=== PATIENT | female | born 1960 | race Caucasian/White ===

== ENCOUNTER → 2016-12-20 | Day surgery (SDC) | payer OTHER ==
[~2016-12-20] MED LIST: AMARYL2 MG; AVAPRO150 MG PO; LEVEMIR100 UNITS/ SUBQ; LEVOTHYROXINE150 MCG PO; METFORMIN PO; NORVASC10 MG PO; PRAVASTATIN SOD20 MG PO
--- NOTE | ~2016-12-20 | OR ---
Unit #: [id number] #: [id number] Patient: JAVAD SEGURA [id number] [address] [address] [id number] O MR#: [id number] NAME: JAVAD SEGURA. ROOM: Date of Procedure: 12/20/2016 Admission Date: 12/20/2016 Surgeon: Sergey Song M.D. : 1960 Attending Physician: Sergey Song M.D. Primary Care Physician: Stephane Otero M.D. OPERATIVE REPORT PRIMARY CARE PHYSICIAN Stephane Otero M.D. PREOPERATIVE DIAGNOSIS Colorectal cancer screening in an average-risk patient. PROCEDURES PERFORMED Colonoscopy and polypectomy. POSTOPERATIVE DIAGNOSES 1. The patient had 2 sessile polyps, one each in the proximal ascending and proximal transverse colon. These were 4 to 6 mm each. Both the polyps were removed using snare polypectomy, retrieved and sent for histology. 2. Mild sigmoid and descending colon diverticulosis. 3. Rest of examination up to cecum was normal. The quality of prep was excellent. RECOMMENDATIONS Follow up results of polyp histology and repeat colonoscopy in 5 years. SEDATION USED MAC. DESCRIPTION OF PROCEDURE Following detailed explanation of potential risks and complications of a colonoscopy, namely perforation, bleeding, and complications related to sedation, the patient was brought to GI lab and laid in the left lateral decubitus position. A digital rectal examination was performed, which was normal. Lubricated tip of the Olympus video colonoscope was inserted through the anus and advanced under direct vision. The scope was advanced and passed up to sigmoid into descending colon. Scant small diverticula were seen in this area. The scope tip was then navigated all the way up to cecum with visualization of the ileocecal valve and the appendiceal orifice. Preparation was excellent with good visualization and photodocumentation was obtained. Successive segments of the colonic mucosa were examined upon withdrawal. Two sessile polyps were noted, one each in the proximal ascending and proximal transverse colon. These were 4 to 6 mm each, both were removed using snare polypectomy, retrieved and sent for histology. Excellent hemostasis was achieved and photodocumentation was obtained. No additional polyps were noted. Other than the scant diverticula on the left side, no other abnormalities were Unit #: [id number] #: [id number] Patient: JAVAD SEGURA found. The patient did not have any internal hemorrhoids at anal verge. The scope was then withdrawn. The patient returned to the recovery area. She tolerated the procedure without any postprocedure complications. Dictated by.Mikayla Jerome/topher TD: 12/20/2016 22:37 JOB #: [id number] OPERATIVE REPORT X Sergey Song MD X PROCEDURE OPERATIVE NOTE
== END | disposition home or self-care (01) ==
LOC: COPS 07:34
DX: Z12.11 Encounter for screening for malignant neoplasm of colon (principal); D12.2 Benign neoplasm of ascending colon; D12.3 Benign neoplasm of transverse colon; K57.30 Diverticulosis of large intestine without perforation or abscess without bleeding; I10 Essential (primary) hypertension; E11.9 Type 2 diabetes mellitus without complications; E78.5 Hyperlipidemia, unspecified; E03.9 Hypothyroidism, unspecified; Z87.01 Personal history of pneumonia (recurrent); Z79.899 Other long term (current) drug therapy; Z98.890 Other specified postprocedural states
CPT/HCPCS: 82947; 88305

== ENCOUNTER 2017-03-20 12:22 | Emergency (ER) | payer OTHER ==
--- NOTE | ~2017-03-20 | CR106 ---
[facility] A Service of [facility] RADIOLOGY TEXT RESULTS PATIENT: JAVAD SEGURA LOCATION: [facility] : 58 UNIT #: [id number] AGE: [address]: Hilda Alejandro SEX: F ORDER DR: [id number] [facility] [address] [place], [place] [address] [id number] E MR#: [id number] Acc #: [id number] NAME: JAVAD SEGURA. : 1960 SEX: F STUDY DATE/TIME: 03/20/2017 15:38 UNIT: [facility] ROOM: STUDY DESCRIPTION: CR Femur 2 Views Lt Attending Physician: Hilda Alejandro P.A.-C. Ordering Physician: Hilda Alejandro P.A.-C. Primary Care Physician: Stephane Otero M.D. MEDICAL IMAGING REPORT This report is preliminary unless electronic signature is present EXAM Left femur, 2 views COMPARISON 3 views of the left knee on the same date. INDICATION 56-year-old female with left thigh pain, swelling and bruising after falling last night. FINDINGS Patellofemoral osteoarthritis is again noted with mild enthesopathy at the superior pole of the patella. Bones are anatomically aligned. Mild marginal osteophytes of the medial compartment of the knee. Mild osteophyte formation at the hip. No evidence of acute fracture. IMPRESSION 1. No evidence of acute fracture or dislocation of the left femur. 2. 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 Dictated by... Tera Donahue M.D. THIS IS AN ELECTRONICALLY VERIFIED REPORT Tera Donahue M.D. at 03/28/2017 7:51 AM Shawn TD: 03/20/2017 23:04 JOB #: [id number] [facility] A Service of [facility] RADIOLOGY TEXT RESULTS PATIENT: JAVAD SEGURA LOCATION: [facility] #: [id number] : 58 UNIT #: [id number] AGE: [address]: Hilda Alejandro SEX: F ORDER DR: MEDICAL IMAGING REPORT Page 1 of 1 COPY
--- NOTE | ~2017-03-20 | CR172 ---
[facility] A Service of [facility] RADIOLOGY TEXT RESULTS PATIENT: JAVAD SEGURA LOCATION: [facility] : 58 UNIT #: [id number] AGE: [address]: Hilda Alejandro SEX: F ORDER DR: [id number] [facility] [address] [place], [place] [address] [id number] E MR#: [id number] Acc #: [id number] NAME: JAVAD SEGURA. : 1960 SEX: F STUDY DATE/TIME: 03/20/2017 15:36 UNIT: [facility] ROOM: STUDY DESCRIPTION: CR Knee 3 Views Lt Attending Physician: Hilda Alejandro P.A.-C. Ordering Physician: Hilda Alejandro P.A.-C. Primary Care Physician: Stephane Otero M.D. MEDICAL IMAGING REPORT This report is preliminary unless electronic signature is present EXAM Left knee, 3 views COMPARISON 2 views of the left femur on the same date. INDICATION 56-year-old female with left knee pain, swelling and bruising after falling last night. FINDINGS There are tibial spine osteophytes as well as femoral notch osteophytes and there is a marginal osteophyte, which is small at the medial tibial plateau. There is bulky osteophyte formation of the superior patella with a small inferior patellar osteophyte. There are also superior femoral osteophytes and mild enthesopathy at the superior pole of the patella. There is questionable thickening of the quadriceps insertion at the patella. There is apparent joint space narrowing of the patellofemoral articulation. No evidence of acute fracture. Bones are anatomically aligned. IMPRESSION 1. No acute fracture or dislocation. 2. Moderate to severe patellofemoral osteoarthritis with mild osteoarthritis of the medial compartment of the knee. There are also femoral notch and tibial spine osteophytes. 3. Findings suggesting enthesopathy at the quadriceps insertion of the patella. Dictated by... Tera Donahue M.D. [facility] A Service of [facility] RADIOLOGY TEXT RESULTS PATIENT: JAVAD SEGURA [id number] : [birth year] UNIT #: [id number] AGE: [address]: Hilda Alejandro SEX: F ORDER DR: THIS IS AN ELECTRONICALLY VERIFIED REPORT Tera Donahue M.D. at 03/28/2017 7:50 AM Shawn TD: 03/20/2017 23:01 JOB #: [id number] MEDICAL IMAGING REPORT Page 1 of 1 COPY
--- NOTE | ~2017-03-20 | CR93 ---
[facility] A Service of [facility] RADIOLOGY TEXT RESULTS PATIENT: JAVAD SEGURA LOCATION: [facility] : 58 UNIT #: [id number] AGE: [address]: Hilda Alejandro SEX: F ORDER DR: [id number] [facility] [address] [place], [place] [address] [id number] E MR#: [id number] Acc #: [id number] NAME: JAVAD SEGURA : 1960 SEX: F STUDY DATE/TIME: 03/20/2017 15:45 UNIT: [facility] ROOM: STUDY DESCRIPTION: CR Elbow Min 3 Views Lt Attending Physician: Hilda Alejandro P.A.-C. Ordering Physician: Hilda Alejandro P.A.-C. Primary Care Physician: Stephane Otero M.D. MEDICAL IMAGING REPORT This report is preliminary unless electronic signature is present EXAM Left elbow, 03/20/2017 INDICATION Pain, swelling and bruising after a fall last night. FINDINGS AP and lateral examination of the elbow shows satisfactory articulation of the humerus with the proximal radius and ulna. There is no identifiable fracture, dislocation, joint effusion, or radiopaque foreign body in the soft tissues. IMPRESSION Normal elbow. Dictated by... Pratik Mahajan Jr., M.D. THIS IS AN ELECTRONICALLY VERIFIED REPORT Pratik Mahajan Jr., M.D. at 03/21/2017 8:45 PM SHELBIE/piotr TD: 03/20/2017 22:58 JOB #: [id number] MEDICAL IMAGING REPORT Page 1 of 1 COPY
== END 2017-03-20 16:35 | disposition home or self-care (01) ==
LOC: CED 12:22
DX: S50.12XA Contusion of left forearm, initial encounter (principal); S70.02XA Contusion of left hip, initial encounter; S80.02XA Contusion of left knee, initial encounter; Y92.9 Unspecified place or not applicable; I10 Essential (primary) hypertension; E11.9 Type 2 diabetes mellitus without complications; Z79.4 Long term (current) use of insulin; E03.9 Hypothyroidism, unspecified; W01.0XXA Fall on same level from slipping, tripping and stumbling without subsequent striking against object, initial encounter
CPT/HCPCS: 73080; 73552; 73562; 99284